=== PATIENT | female | born 1955 | race Two or more races ===

== ENCOUNTER 2022-09-02 09:51 | Emergency (ER) | payer SELFPAY ==
[~2022-09-02 09:51] MED LIST: HYDR-3972 PO; LORA0.5T PO; ZOLP10TA5 PO
== END 2022-09-02 13:43 | disposition left against medical advice (07) ==
LOC: ER 09:51
DX: F41.9 Anxiety disorder, unspecified (principal); Z53.21 Procedure and treatment not carried out due to patient leaving prior to being seen by health care provider

== ENCOUNTER 2022-09-08 09:34 | Emergency (ER) | payer MEDICARE ==
[~2022-09-08] VITALS: Ht 160 cm; Wt 65.9 kg
[2022-09-08 10:03] VITALS: BP 138/80
[2022-09-08] MEDS ORDERED: ZOLP5TAB2 PO (10:52)
== END 2022-09-08 11:10 | disposition home or self-care (01) ==
LOC: ER 09:34
DX: G47.00 Insomnia, unspecified (principal); Z91.041 Radiographic dye allergy status; Z91.013 Allergy to seafood
CPT/HCPCS: 99283

== ENCOUNTER 2023-07-13 14:25 | Emergency (ER) | payer MEDICARE ==
[~2023-07-13] VITALS: Ht 160 cm; Wt 68.2 kg
[~2023-07-13 14:25] MED LIST changes: +ZOLP5TAB2 PO
[2023-07-13 15:18] VITALS: BP 138/82; PULSE 78; RESP 16; TEMP 98.5; O2SAT 98
[2023-07-13 15:57] LABS: BASOPHILS % (AUTO) 0.2 % (0-1); EOSINOPHILS # (AUTO) 0.1 X10'3 (0-0.9); EOSINOPHILS % (AUTO) 1.4 % (0-6); HEMOGLOBIN 14.5 g/dl (12.0-16.0); LYMPHOCYTES # (AUTO) 2.8 X10'3 (1.1-4.8); LYMPHOCYTES % (AUTO) 36.5 % (21-51); MEAN CORPUSCULAR HEMOGLOBIN 35.5 PG (27.0-31.0); MEAN CORPUSCULAR HGB CONC 34.5 g/dL (33.0-36.5); MEAN PLATELET VOLUME 9.2 FL (7.4-10.4); MONOCYTES # (AUTO) 0.6 X10'3 (0-0.9); MONOCYTES % (AUTO) 7.3 % (2-12); NEUTROPHILS # (AUTO) 4.2 X10'3 (1.8-7.7); NEUTROPHILS % (AUTO) 54.6 % (42-75); PLATELET COUNT 167 X10'3 (140-440); RED BLOOD COUNT 4.08 X10'6 (4.20-5.60); RED CELL DISTRIBUTION WIDTH 12.3 % (11.5-14.5); WHITE BLOOD COUNT 7.6 X10'3 (4.5-11.0)
[2023-07-13 16:08] LABS: ALANINE AMINOTRANSFERASE 123 U/L (12-78); ALBUMIN 3.8 G/DL (3.4-5.0); ALKALINE PHOSPHATASE 142 IU/L (46-116); ANION GAP 5 (8-16); ASPARTATE AMINO TRANSFERASE 101 U/L (10-37); BILIRUBIN,TOTAL 0.5 MG/DL (0.1-1.0); BLOOD UREA NITROGEN 5 MG/DL (7-18); BUN/CREATININE RATIO 6.6 (10.0-20.0); CALCIUM 8.8 MG/DL (8.5-10.1); CHLORIDE 103 MMOL/L (99-107); CREATININE 0.76 MG/DL (0.40-0.90); GLUCOSE 102 MG/DL (70-104); POTASSIUM 3.5 MMOL/L (3.5-5.1); SODIUM 136 MMOL/L (135-145); TOTAL CARBON DIOXIDE 27.9 MMOL/L (24-32); TOTAL PROTEIN 7.8 G/DL (6.4-8.2); eCRCL 60 ML/MIN; eGFR 76 ML/MIN
[2023-07-13 16:11] LABS: LIPASE 30 U/L (16-77)
[2023-07-13 16:20] LABS: AMYLASE 47 U/L (25-115); MAGNESIUM 2.1 MG/DL (1.5-2.4)
== END 2023-07-13 22:03 | disposition left against medical advice (07) ==
LOC: ER 14:25
DX: R10.10 Upper abdominal pain, unspecified (principal); R53.1 Weakness; Z91.041 Radiographic dye allergy status
CPT/HCPCS: 36415; 80053; 82150; 83690; 83735; 85025; 93005; 99284

== ENCOUNTER 2024-01-21 09:53 | Outpatient (CLI) | payer MEDICARE, MEDICAID | END 2024-01-21 23:59 | disposition home or self-care (01) | LOC: RAD 09:53 | PROVIDERS: ATTEND Family Medicine | DX: K76.89 Other specified diseases of liver (principal); K82.8 Other specified diseases of gallbladder; R10.11 Right upper quadrant pain | CPT/HCPCS: 76700 ==

== ENCOUNTER 2025-03-28 11:03 | Outpatient (CLI) | payer MEDICARE, MEDICAID ==
--- NOTE | 2025-03-28 14:11 | RADIOLOGY REPORT ---
INDICATION: HEPATIC CIRRHOSIS TECHNIQUE: Multiple real-time sonographic images of the abdomen were obtained. COMPARISON: US ULTRASOUND OF ABDOMEN on DOS: 01/21/24 FINDINGS: The liver is homogenous in echogenicity. The liver measures 15cm. No intrahepatic biliary ductal dilatation is noted. The gallbladder wall measures 0.2 cm and is unremarkable. No gallstones or sludge is seen. The commo n duct measures 0.3 cm and is unremarkable. No pericholecystic fluid is noted. The right kidney measures 10cm. No hydronephrosis. The left kidney measures 11cm. No hydronephrosis . The spleen measures 10cm, within normal limits. The echogenicity is within normal limits. The pancreas is not well visualized due to obscuration from bowel gas. The visualized portions of the IVC and aorta are grossly unremarkable. IMPRESSION: Normal exam of the abdomen.
== END 2025-03-28 23:59 | disposition home or self-care (01) ==
LOC: RAD 11:03
PROVIDERS: ATTEND Family Medicine
DX: B18.2 Chronic viral hepatitis C (principal)
CPT/HCPCS: 76700